=== PATIENT | male | born 1940 | race African-American/Black ===

== ENCOUNTER 2018-08-25 07:32 | Day surgery (SDC) | payer MEDICARE, MEDICAID ==
[~2018-08-25] VITALS: Ht 182.9 cm; Wt 74.8 kg
[~2018-08-25 07:32] MED LIST: CYCLOPENTOLATE HCL 1% OPHTH DROPS 2ML RIGHTEYE ONE; LACTATED RINGERS 1,000 ML IV SCH; NO HOME MEDS; PHENYLEPHRINE HCL 10% OPHTH DROPS 5ML RIGHTEYE ONE; TROPICAMIDE 1% OPHTH DROPS 15ML RIGHTEYE ONE
[2018-08-25] MEDS ORDERED: BALANCED SALT IRRIG SOLN COMB1 500ML OP SCH (09:30)
[2018-08-25] MEDS ORDERED: LISI-604 PO (09:47)
[2018-08-25] MEDS ORDERED: ALBU18HF2 IH (09:47)
[2018-08-25] MEDS ORDERED: MIDAZOLAM HCL 2 MG/2 ML VIAL ONE (10:29)
[2018-08-25] MEDS ORDERED: FENTANYL CITRATE/PF 50MCG/ML 2ML VIAL ONE (10:29)
[2018-08-25] MEDS ORDERED: DEXAMETHASONE 4MG/ML 1ML VIAL ONE (10:34)
[2018-08-25] MEDS ORDERED: ONDANSETRON HCL 4MG/2ML INJ ONE (10:34)
[2018-08-25] MEDS ORDERED: CEFAZOLIN SODIUM 1000MG/VIAL ONE (10:34)
[2018-08-25] MEDS ORDERED: SODIUM CHLORIDE 0.9% 10ML VIAL ONE (10:34)
[2018-08-25] MEDS ORDERED: HYALURONATE SODIUM 14 MG/ML 0.85ML SYRINGE IO ONE (10:44)
[2018-08-25] MEDS ORDERED: MEPERIDINE HCL/PF 25MG/ML CPJ IV PRN (10:45)
[2018-08-25] MEDS ORDERED: ONDANSETRON HCL 4MG/2ML INJ IV PRN (10:45)
[2018-08-25] MEDS ORDERED: LABETALOL HCL 5MG/ML VIAL 20ML IV PRN (10:45)
[2018-08-25] MEDS ORDERED: HYDROMORPHONE HCL/PF 2MG/ML CPJ IV PRN (10:45)
[2018-08-25] MEDS ORDERED: PREDNISOLONE ACETATE 1% OPHTH DROPS 1ML ONE (15:44)
[2018-08-25] MEDS ORDERED: CYCLOPENTOLATE HCL 1% OPHTH DROPS 2ML ONE (15:44)
[2018-08-25] MEDS ORDERED: TROPICAMIDE 1% OPHTH DROPS 15ML ONE (15:44)
[2018-08-25] MEDS ORDERED: PHENYLEPHRINE HCL 10% OPHTH DROPS 5ML ONE (15:44)
[2018-08-25] MEDS ORDERED: LIDOCAINE HCL/PF 2% 20 MG/ML 10ML VIAL ONE (15:44)
== END 2018-08-25 12:00 | disposition home or self-care (01) ==
LOC: OR 07:32
PROVIDERS: ATTEND Ophthalmology
DX: H25.89 Other age-related cataract (principal); I13.2 Hypertensive heart and chronic kidney disease with heart failure and with stage 5 chronic kidney disease, or end stage renal disease; E11.22 Type 2 diabetes mellitus with diabetic chronic kidney disease; N18.6 End stage renal disease; I50.32 Chronic diastolic (congestive) heart failure; Z99.2 Dependence on renal dialysis; I25.10 Atherosclerotic heart disease of native coronary artery without angina pectoris; I42.9 Cardiomyopathy, unspecified; D63.1 Anemia in chronic kidney disease
CPT/HCPCS: 66984; J0690; J1100; J2250; J2405; J3010; J3490; V2632